=== PATIENT | male | born 1995 | race Caucasian/White ===

== ENCOUNTER 2018-12-27 08:59 | Day surgery (SDC) | payer OTHER ==
[~2018-12-27] VITALS: Ht 180.3 cm; Wt 91.2 kg
[~2018-12-27 08:59] MED LIST: ACET-841 PO; AMPICILLIN SOD/SULBACTAM SOD 3 GM in D5W MINI-BAG PLUS 100 ML IV ONE; LIDOCAINE 1% MDV 20ML VIAL SQ PRN; LR 1,000 ML IV ONE; METHADONE PO; dexameTHASONE 4 MG/ML 1ML VIAL (J1100) IV ONE
[2018-12-27] MEDS ORDERED: LIDOCAINE 2% W/ EPINEPHRINE 1.7 ML DENTAL INJ As Ordered ONE ×2 (09:31→10:18)
[2018-12-27] MEDS ORDERED: OXYMETAZOLINE NASAL SPRAY (AFRIN) As Ordered ONE (09:33)
[2018-12-27] MEDS ORDERED: LIDOCAINE 2% JELLY 6 ML SYRINGE As Ordered ONE (10:24)
[2018-12-27] MEDS ORDERED: PROPOFOL 200 MG/20 ML VIAL As Ordered ONE ×2 (10:24→10:25)
[2018-12-27] MEDS ORDERED: ONDANSETRON 4MG/2ML VIAL (J2405) As Ordered ONE (10:24)
[2018-12-27] MEDS ORDERED: ACETAMINOPHEN 1000MG 100ML IV BTL (OFIRMEV) (J0131 PER 10MG) As Ordered ONE (10:24)
[2018-12-27] MEDS ORDERED: LIDOCAINE 2% INJ 100 MG/5 ML SDV (FOR ANES.) As Ordered ONE (10:24)
[2018-12-27] MEDS ORDERED: KETOROLAC 60 MG/2 ML VIAL (J1885) As Ordered ONE (10:24)
[2018-12-27] MEDS ORDERED: ROCURONIUM BROMIDE 50 MG/5 ML VIAL As Ordered ONE (10:24)
[2018-12-27] MEDS ORDERED: MIDAZOLAM INJ 2 MG/2 ML VIAL (J2250) As Ordered ONE (10:24)
[2018-12-27] MEDS ORDERED: ePHEDrine SULFATE 25 MG/5 ML(5MG/ML) SYRINGE As Ordered ONE (10:32)
[2018-12-27] MEDS ORDERED: SUGAMMADEX SODIUM 500 MG/5 ML VIAL (BRIDION) As Ordered ONE (10:32)
[2018-12-27] MEDS ORDERED: LR 1,000 ML IV SCH (11:30)
[2018-12-27] MEDS ORDERED: ONDANSETRON 4MG/2ML VIAL (J2405) IV PRN (11:30)
[2018-12-27] MEDS ORDERED: METOCLOPRAMIDE INJ 10MG/2ML VIAL (J2765) IV PRN (11:30)
[2018-12-27 11:51] VITALS: BP 138/75
--- NOTE | 2018-12-28 12:23 | RO ---
DATE OF PROCEDURE: 12/27/2018 SURGEON: Chong Mosquera DMD, MD [employer] OPERATOR: PREOPERATIVE DIAGNOSES: 1. Severe dental anxiety. 2. Grossly decayed and hopeless teeth number 1, 2, 13, 14, 15, 16, as well as partially impacted tooth number 32. POSTOPERATIVE DIAGNOSES: Status post: 1. Severe dental anxiety. 2. Grossly decayed and hopeless teeth number 1, 2, 13, 14, 15, 16, as well as partially impacted tooth number 32. PROCEDURE PERFORMED: Surgical extraction of the aforementioned teeth. ANESTHESIA USED: General endotracheal anesthesia via nasal ray. SPECIMEN: Teeth for gross only. INDICATIONS: The patient is 23-year-old male who presented to my office for evaluation for extraction of those aforementioned teeth. He does have a history of daily methadone use for ex-opiate abuse, as well as a severe dental anxiety. We discussed office anesthesia versus general anesthesia in an operating room setting. He elects to have the latter performed. All the risks, benefits, and alternatives were explained to the patient. A history and physical and a consent form were obtained and are in the patient's chart. DESCRIPTION OF PROCEDURE: The patient was taken back to the operating room, and he was laid supine on the operating room table. Ulnar nerve protectors were placed. Noninvasive cardiac monitors were applied. At that point, the patient underwent general anesthesia and was intubated with a nasal ray. He was then prepped and draped in the usual sterile fashion. Time-out procedure was performed to identify the patient, the procedure, and any other precautions. Preoperative antibiotics and steroids were administered. At this point, a moist throat pack was inserted in the patient's oropharynx, followed by the administration of 2% lidocaine with 1:100,000 epinephrine for local infiltrations and blocks. A full-thickness flap was released in sites number 1, 2, 13, 14, 15, 16, and 32. Small buccal troughs were made in sites number 1, 2, 13, 14, 15, 16, and 32. At this point, the teeth were luxated and delivered with ease. All the sockets were curetted and irrigated. No sinus exposure was noted. Inferior alveolar nerve was not noted, and the lingual cortices were intact. Once all the sockets were curetted and irrigated, the flaps were then closed with 3-0 chromic sutures and gauze. Hemostasis was easily achieved and noted. The oral cavity was copiously irrigated and suctioned, and the throat pack was removed. At this point, the patient was extubated without any incident and taken back to the postanesthesia care unit (PACU). COMPLICATIONS: None to mention at the time of surgery. ESTIMATED BLOOD LOSS: 10 mL. DRAINS: There were no drains placed.
== END 2018-12-27 12:15 | disposition home or self-care (01) ==
LOC: M SDC 08:59
PROVIDERS: ATTEND Dentist
DX: K02.9 Dental caries, unspecified (principal); Z88.1 Allergy status to other antibiotic agents; F17.218 Nicotine dependence, cigarettes, with other nicotine-induced disorders; Z79.891 Long term (current) use of opiate analgesic; F11.21 Opioid dependence, in remission
CPT/HCPCS: 88300; D7210; D7220; D9223; J0131; J1100; J1885; J2250; J2405